=== PATIENT | female | born 1960 | race American Indian/Alaskan Native ===

== ENCOUNTER 2017-11-02 12:29 | Outpatient (CLI) | payer OTHER ==
--- NOTE | 2017-11-03 16:08 | Mammography Report ---
BILATERAL DIGITAL SCREENING MAMMOGRAM with CAD: 11/02/17 12:29:00 CLINICAL: Routine screening. COMPARISON:11/16/15 FINDINGS: The breasts are heterogeneously dense, which may obscure small masses. No mass, architectural distortion or suspicious calcifications. IMPRESSION: No mammographic evidence of malignancy. BI-RADS CATEGORY: 2 - - Benign RECOMMENDATION: Routine mammographic screening in one year. COMMENT: Patient follow-up letters are generated by our [employer] application.
== END 2017-11-02 12:30 | disposition home or self-care (01) ==
LOC: SPVWC 12:29
PROVIDERS: ATTEND General Practice
DX: Z12.31 Encounter for screening mammogram for malignant neoplasm of breast (principal)
CPT/HCPCS: 77067

== ENCOUNTER 2018-06-11 08:30 | Emergency (ER) | payer OTHER ==
[2018-06-11 08:52] VITALS: BP 136/81
[2018-06-11] MEDS ORDERED: TORADOL IM ONE (09:23)
[2018-06-11] MEDS ORDERED: TORADOL ONE (09:27)
--- NOTE | 2018-06-11 09:27 | Emergency Department Report ---
ED Headache HPI - General Chief Complaint: Headache Stated Complaint: HEADACHE/DIZZINESS - History of Present Illness Initial Comments: This is a 57-year-old -[place] female who presents with headache and dizziness for one week. Patient admits to pass a history of vertigo several years ago. She started having a headache last week that is worse on the right side. She is currently taking Excedrin extra strength which improved symptoms they shortly return. She reports pain is dull achy sensation primarily on right side. Here he patient states symptoms start upon waking. They last 3 hours to 24 hours. Dizziness started 2 days ago. She denies nausea or vomiting , fever, congestion, rhinorrhea, sick contacts, or chest pain. Timing/Duration: 24 hours Quality: moderate, achy, throbbing Head Injury Location: other (right sided) Recent Head Trauma: no recent headache/trauma Modifying Factors: improves with: exposure to light, medication Associated Symptoms: denies symptoms Allergies/Adverse Reactions: Allergies No Known Allergies Allergy (Verified 06/11/18 09:39) Home Medications: Ambulatory Orders Diclofenac Sodium 75 mg PO BID #10 tablet. 06/11/18 Meclizine [Antivert] 25 mg PO TID PRN #12 tablet 06/11/18 ED Review of Systems ROS: Stated complaint: HEADACHE/DIZZINESS Other details as noted in HPI Constitutional: denies: chills, fever Respiratory: denies: cough, shortness of breath, wheezing Cardiovascular: denies: chest pain, palpitations Gastrointestinal: denies: abdominal pain, nausea, diarrhea Neurological: headache, vertigo. denies: weakness, numbness, paresthesias, confusion, abnormal gait Psychiatric: denies: anxiety, depression ED Past Medical Hx - Past Medical History Previous Medical History?: No - Social History Smoking Status: Never Smoker - Medications Home Medications: Home Medications Medication Instructions Recorded Confirmed Last Taken Type Diclofenac Sodium 75 mg PO BID #10 tablet. 06/11/18 Unknown Rx Meclizine [Antivert] 25 mg PO TID PRN #12 tablet 06/11/18 Unknown Rx ED Physical Exam - General Limitations: No Limitations General appearance: alert, in no apparent distress - Eye Eye exam: Present: normal appearance. Absent: nystagmus - ENT ENT exam: Present: mucous membranes moist - Respiratory Respiratory exam: Present: normal lung sounds bilaterally. Absent: respiratory distress - Cardiovascular Cardiovascular Exam: Present: regular rate, normal rhythm. Absent: systolic murmur, diastolic murmur, rubs, gallop - GI/Abdominal GI/Abdominal exam: Present: soft, normal bowel sounds - Neurological Exam Neurological exam: Present: alert, oriented X3 - Psychiatric Psychiatric exam: Present: normal affect, normal mood - Skin Skin exam: Present: warm, dry, intact, normal color. Absent: rash ED Course Vital Signs 06/11/18 06/11/18 08:47 09:28 Temperature 98.9 F Pulse Rate 67 Respiratory 16 18 Rate Blood Pressure 136/81 O2 Sat by Pulse 99 Oximetry ED Medical Decision Making - Radiology Data Radiology results: report reviewed, image reviewed The CRANIAL CT SCAN: Headache. Serial contiguous axial images were obtained through the cranium. Intravenous contrast material was not administered. The ventricles are normal in size and appearance. There is no mass effect or midline shift. No areas of abnormally increased or decreased attenuation are seen. No mass lesion is seen. The mastoid air cells and visualized portions of the sinuses are normal. IMPRESSION: Cranial CT scan within normal limits. - Medical Decision Making This is a 57 y.o. female that presents with headache for 1 day. No prior history of migraine. Patient is stable and was examined by me. Patient is nontoxic-appearing and in no acute distress. Given Toradol 30 mg IM once while in ER. CT of head obtained and dictated by radiologist and report reviewed by myself. Cranial CT scan within normal limits. Start diclofenac 75 mg by mouth twice a day when necessary and meclizine 25 mg by mouth twice a day when necessary. Discharged home in stable condition. Follow up with PCP in 24-72 hours. Critical care attestation.: If time is entered above; I have spent that time in minutes in the direct care of this critically ill patient, excluding procedure time. ED Disposition Clinical Impression: Vertigo Migraine Qualifiers: Migraine type: without aura Status migrainosus presence: with status migrainosus Intractability: not intractable Qualified Code(s): G43.001 - Migraine without aura, not intractable, with status migrainosus Disposition: - TO HOME OR SELFCARE Is pt being admited?: No Does the pt Need Aspirin: No Condition: Stable Instructions: Migraine Headache (ED), Vertigo (ED) Additional Instructions: Take medication at start of headache. Moderate caffeine intake. Eat at scheduled times or 3 meals a day with snacks. Follow up with primary care provider in 24-72 hours. Prescriptions: Diclofenac Sodium 75 mg PO BID #10 tablet.dr Amezquitazine [Antivert] 25 mg PO TID PRN #12 tablet PRN Reason: Vertigo Referrals: GARRY SUH DO [Staff Physician] - 3-5 Days [facility] [Provider Group] - 3-5 Days BRANDIE MARTINEZ MD [Staff Physician] - 3-5 Days Forms: Work/School Release Form(ED) Time of Disposition: 10:35 Print Language: SOUTH SUDANESE
--- NOTE | 2018-06-11 09:53 | Cat Scan Report ---
The CRANIAL CT SCAN: Headache. Serial contiguous axial images were obtained through the cranium. Intravenous contrast material was not administered. The ventricles are normal in size and appearance. There is no mass effect or midline shift. No areas of abnormally increased or decreased attenuation are seen. No mass lesion is seen. The mastoid air cells and visualized portions of the sinuses are normal. IMPRESSION: Cranial CT scan within normal limits.
== END 2018-06-11 10:50 | disposition home or self-care (01) ==
LOC: ED 08:30
DX: G43.001 Migraine without aura, not intractable, with status migrainosus (principal)
CPT/HCPCS: 70450; 96372; 99283; J1885

== ENCOUNTER 2018-11-17 09:34 | Outpatient (CLI) | payer OTHER ==
--- NOTE | 2018-11-17 10:23 | Mammography Report ---
BILATERAL MAMMOGRAM: FINDINGS: The breast tissue is heterogeneously dense, which could obscure detection of small masses (approximately 50%-75% glandular). No mass, distortion, suspicious calcification, or skin change is seen. There are no significant changes when compared to prior exams dating back to 2016. CAD was utilized. IMPRESSION: Negative mammogram. There is no mammographic evidence of malignancy. RECOMMENDATION: Follow-up per ACS guidelines. BI-RADS CATEGORY: 1 = Negative ACR BI-RADS MAMMOGRAPHIC CODES: 0 = Needs additional imaging evaluation; 1 = Negative; 2 = Benign; 3 = Probably benign; 4 = Suspicious; 5 = Malignant; 6 = Known biopsy-proven malignancy COMMENT: 1. Dense breast tissue, i.e., adenosis, fibrocystic changes, etc., may obscure an underlying neoplasm. 2. Approximately 10% of cancers are not detected with mammography. 3. A negative mammography report should not delay biopsy if a clinically suspicious mass is present. COMMENT: Patient follow-up letters are generated in [employer].
== END 2018-11-17 09:35 | disposition home or self-care (01) ==
LOC: SPVWC 09:34
PROVIDERS: ATTEND Internal Medicine
DX: Z12.31 Encounter for screening mammogram for malignant neoplasm of breast (principal)
CPT/HCPCS: 77067

== ENCOUNTER 2021-10-17 12:10 | Emergency (ER) | payer OTHER ==
[2021-10-17 12:27] VITALS: BP 127/70
--- NOTE | 2021-10-17 14:21 | XRay Report ---
XR chest routine 2V INDICATION / CLINICAL INFORMATION: chest pain. COMPARISON: None available. FINDINGS: SUPPORT DEVICES: None. HEART /PULMONARY VASCULATURE: No significant abnormality. LUNGS / PLEURA: No significant pulmonary or pleural abnormality. No pneumothorax. ADDITIONAL FINDINGS: No significant additional findings. IMPRESSION: 1. No acute findings. Signer Name: Rafael Liao MD Signed: 10/17/2021 2:16 PM Workstation Name: [id number]
[2021-10-17] MEDS ORDERED: ACETAMINOPHEN 325 MG TAB PO ONE (15:20)
[2021-10-17] MEDS ORDERED: IBUPROFEN 400 MG TAB PO ONE (15:20)
--- NOTE | 2021-10-17 15:20 | Emergency Department Report ---
ED General Adult HPI - General Chief complaint: Chest Pain Stated complaint: Chest wall pain with cough PUI?: No Time Seen by Provider: 10/17/21 15:01 Source: patient, RN notes reviewed, old records reviewed Mode of arrival: Ambulatory Limitations: No Limitations - History of Present Illness Initial comments: The patient was evaluated in the emergency department for symptoms described in the history of present illness. He/she was evaluated in the context of the global COVID-19 pandemic, which necessitated consideration that the patient might be at risk for infection with the virus that causes COVID-19. Institutional protocols and algorithms that pertain to the evaluation of patients at risk for COVID-19 are in a state of rapid change based on information released by regulatory bodies including the CDC and federal and state organizations. These policies and algorithms were followed during the patient's care in the emergency department. Please note that these policies, procedures and recommendations changed on a rapid basis. Primary CARE doctor: Dr. Phil Garcia This is a 61 year old female who presents to the ER today with a chief complaint of chest wall pain associated with cough. The patient reports that she is currently being treated for bronchitis by her primary care doctor, with Tessalon Perles, doxycycline antibiotic (which she has completed), and allergy medication. She has not taken anything for pain. The chest wall pain is central, and left- sided and reproducible, and increases with palpation. She also endorses dry cough, and intermittent dry mucus production, predominantly at night. She denies significant contributing family history, and she also denies DVT/PE risk factors/aspirin consumption recently. The patient also reports that she has not taken anything for pain. She is COVID-19 vaccinated but has not completed her COVID-19 booster. The patient reports that her chest wall pain has been present for a few days. During the history and physical examination I am chaperoned by video producer Patricia Garcia -: Gradual, days(s) Location: chest (Central and left-sided anterior chest wall) Quality: aching Consistency: intermittent Improves with: rest Worsens with: movement, other (Palpation and coughing) - Related Data Previous Rx's Medication Instructions Recorded Last Taken Type Diclofenac Sodium 75 mg PO BID #10 tablet. 06/11/18 Unknown Rx Meclizine [Antivert] 25 mg PO TID PRN #12 tablet 06/11/18 Unknown Rx Albuterol Sulfate [Proair 90 mcg IH Q4HR PRN #2 aer.[email or web address] 10/17/21 Unknown Rx Respiclick] Allergies Allergy/AdvReac Type Severity Reaction Status Date / Time No Known Allergies Allergy Verified 10/17/21 12:22 ED Review of Systems ROS: Stated complaint: CHEST PAIN/COUGH Other details as noted in HPI Constitutional: denies: fever Eyes: denies: vision change ENT: denies: epistaxis Respiratory: cough, shortness of breath, wheezing Cardiovascular: chest pain. denies: palpitations, syncope Gastrointestinal: denies: nausea, vomiting, diarrhea Genitourinary: denies: dysuria Musculoskeletal: denies: back pain Neurological: denies: weakness ED Past Medical Hx - Past Medical History Previous Medical History?: No - Surgical History Additional Surgical History: EYE - Social History Smoking Status: Never Smoker - Medications Home Medications: Home Medications Medication Instructions Recorded Confirmed Last Taken Type Diclofenac Sodium 75 mg PO BID #10 tablet. 06/11/18 Unknown Rx Meclizine [Antivert] 25 mg PO TID PRN #12 tablet 06/11/18 Unknown Rx Albuterol Sulfate [Proair 90 mcg IH Q4HR PRN #2 aer.[email or web address] 10/17/21 Unknown Rx Respiclick] ED Physical Exam - General Limitations: No Limitations General appearance: alert, in no apparent distress - Head Head exam: Present: atraumatic, normocephalic - Eye Eye exam: Present: normal appearance, EOMI. Absent: nystagmus - ENT ENT exam: Present: normal exam, normal orophraynx, mucous membranes moist, normal external ear exam - Neck Neck exam: Present: normal inspection, full ROM. Absent: tenderness, meningismus - Respiratory Respiratory exam: Present: normal lung sounds bilaterally, chest wall tenderness, other (Patient provides verbal consent for breast and anterior chest wall examination. Chaperoned by Patricia Garcia. Patient has reproducible central and left-sided anterior chest wall tenderness.). Absent: respiratory distress, wheezes, rales, rhonchi, stridor - Cardiovascular Cardiovascular Exam: Present: regular rate, normal rhythm, normal heart sounds. Absent: bradycardia, tachycardia, irregular rhythm, systolic murmur, diastolic murmur, rubs, gallop - GI/Abdominal GI/Abdominal exam: Present: soft. Absent: distended, tenderness, guarding, rebound, rigid, pulsatile mass - Extremities Exam Extremities exam: Present: normal inspection, full ROM, other (2+ pulses noted in the bilateral upper and lower extremities. There is no palpable cord. negative Homans sign. Muscular compartments are soft. The pelvis is stable.). Absent: pedal edema, calf tenderness - Back Exam Back exam: Present: normal inspection, full ROM. Absent: tenderness, CVA tenderness (R), CVA tenderness (L), paraspinal tenderness, vertebral tenderness - Neurological Exam Neurological exam: Present: alert, oriented X3, normal gait, other (No facial droop. Tongue midline. Extraocular movements intact bilaterally. Facial sensation intact to light touch in V1, V2, V3 distribution bilaterally. 5 and a 5 strength in 4 extremities. Sensation intact to light touch in 4 extremities.). Absent: motor sensory deficit - Psychiatric Psychiatric exam: Present: normal affect, normal mood - Skin Skin exam: Present: warm, dry, intact, normal color. Absent: rash ED Course Vital Signs 10/17/21 12:26 Temperature 98.3 F Pulse Rate 81 Respiratory 20 Rate Blood Pressure 127/70 O2 Sat by Pulse 99 Oximetry ED Medical Decision Making - Lab Data Result diagrams: 10/17/21 15:02 10/17/21 15:02 Vital Signs 10/17/21 12:26 Temperature 98.3 F Pulse Rate 81 Respiratory 20 Rate Blood Pressure 127/70 O2 Sat by Pulse 99 Oximetry Lab Results 10/17/21 10/17/21 10/17/21 Range/Units 15:02 15:02 15:02 WBC 9.2 (4.5-11.0) K/mm3 RBC 4.73 (3.65-5.03) M/mm3 Hgb 13.0 (10.1-14.3) gm/dl Hct 41.5 (30.3-42.9) % MCV 88 (79-97) fl MCH 27 L (28-32) pg MCHC 31 (30-34) % RDW 13.3 (13.2-15.2) % Plt Count 294 (140-440) K/mm3 Sodium 137 (137-145) mmol/L Potassium 4.0 (3.6-5.0) mmol/L Chloride 103.1 (98-107) mmol/L Carbon Dioxide 24 (22-30) mmol/L Anion Gap 14 mmol/L BUN 14 (7-17) mg/dL Creatinine 0.7 (0.6-1.2) mg/dL Estimated GFR > 60 ml/min BUN/Creatinine Ratio 20 % Glucose 114 H (65-100) mg/dL Calcium 9.3 (8.4-10.2) mg/dL Total Bilirubin 0.20 (0.1-1.2) mg/dL AST 16 (5-40) units/L ALT 14 (7-56) units/L Alkaline Phosphatase 96 (35-129) units/L Troponin T < 0.010 (0.00-0.029) ng/mL Total Protein 7.9 (6.3-8.2) g/dL Albumin 4.4 (3.9-5) g/dL Albumin/Globulin Ratio 1.3 % - EKG Data -: EKG Interpreted by Me EKG shows normal: sinus rhythm Rate: normal - EKG Data When compared to previous EKG there are: previous EKG unavailable 10/17/21 15:51 The EKG is interpreted at 12: 35 Sinus rhythm, rate 67 bpm. There is a borderline normal axis, normal P wave axis, normal intervals. The EKG is not a STEMI. There is no prior for comparison peer - Radiology Data Radiology results: pending, report reviewed, image reviewed interpreted by me: 2 view x-ray of the chest, interpreted by myself, shows no infiltrates, no pneumothorax and clear lung XR chest routine 2V INDICATION / CLINICAL INFORMATION: chest pain. COMPARISON: None available. FINDINGS: SUPPORT DEVICES: None. HEART /PULMONARY VASCULATURE: No significant abnormality. LUNGS / PLEURA: No significant pulmonary or pleural abnormality. No pneumothorax. ADDITIONAL FINDINGS: No significant additional findings. IMPRESSION: 1. No acute findings. Signer Name: Rafael Liao MD Signed: 10/17/2021 1:16 PM Workstation Name: [id number] - Medical Decision Making Differential diagnosis, include but not limited to: Costochondritis, bronchitis, pneumonia Assessment and plan: 61-year-old female, who is not currently tachycardic, tachypneic or hypoxic, who denies DVT and pulmonary embolism risk factors, who is low risk by Wells criteria for pulmonary embolism, EKG unchanged unremarkable times, troponin negative x1 in the context of days of symptoms. Acute myocardial infarction is ruled out given that patient has been having greater than 8 hours of chest pain Patient has equal pulses in the upper and lower extremities, no pulsatile abdominal mass, and an unremarkable x-ray of the chest, therefore, aortic disease is very unlikely. Patient at low risk for major adverse cardiac event as per heart score. Chest x-ray and laboratory studies unremarkable. This is most likely bronchitis with superimposed costochondritis. Her primary care doctor has already prescribed doxycycline, Tessalon Perles, she is not taking pain medication [id number] and she may therefore take Tylenol and/or ibuprofen [id number], she has also been prescribed allergy medicine which she is taking, and we will also prescribe as needed albuterol. Discussed this with the patient. She articulated understanding. All questions answered Critical care attestation.: If time is entered above; I have spent that time in minutes in the direct care of this critically ill patient, excluding procedure time. ED Disposition Clinical Impression: Bronchitis, Chest wall pain Disposition: 01 HOME / SELF CARE / HOMELESS Is pt being admited?: No Does the pt Need Aspirin: No Condition: Good Instructions: Chronic Bronchitis (ED), Costochondritis, Acute Bronchitis, Adult Additional Instructions: As we discussed, patient likely has bronchitis and costochondritis. Symptoms of bronchitis will typically persist 4 to 6 weeks. Please continue current Tessalon Perles therapy, complete antibiotics, and take allergy medications that have been prescribed by your primary care doctor. Patient may use the albuterol inhaler as needed, and may take [id number] ibuprofen, 600 mg with food, every 6 hours as needed for pain, alternating with Tylenol, 650 mg by mouth, every 4-6 hours as needed for pain, maximum daily dose to not exceed 3 g per 24 hours. There is no cure for bronchitis. Bronchitis is typically not dangerous or life- threatening. Please follow-up with your primary care doctor within the next 7 to 10 days. Please return to the emergency room right away with new pain, worsened pain, migration of pain, projectile vomiting, change in mental status, confusion, inability tolerate liquid feeds, new, worsened or different symptoms not present on the initial emergency room evaluation Referrals: PHIL GARCIA MD [Staff Physician] - 3-5 Days Forms: Work/School Release Form(ED) Heart Score - HEART Score History: Slightly suspicious EKG: Non-specific Age: 45-65 Risk factors: No known risk factors Troponin: < normal limit HEART Score: 2 - EKG Read Time Time EKG Completed: 12:40 EKG Read Time: 12:40 - Critical Actions Critical Actions: 4-6 pts:12-16.6% risk of adverse cardiac event. Should be admitted
[2021-10-17 15:24] LABS: Hematocrit 41.5 % (30.3-42.9); Mean Corpuscular HGB Conc 31 % (30-34); Mean Corpuscular Volume 88 fl (79-97); Platelet Count 294 K/mm3 (140-440); Red Blood Count 4.73 M/mm3 (3.65-5.03); Red Cell Distribution Width 13.3 % (13.2-15.2)
[2021-10-17 15:40] LABS: Alanine Aminotransferase 14 units/L (7-56); Albumin 4.4 g/dL (3.9-5); Blood Urea Nitrogen 14 mg/dL (7-17); Calcium 9.3 mg/dL (8.4-10.2); Hemolysis Index 14
[2021-10-17 15:42] LABS: BUN/Creatinine Ratio 20
--- NOTE | 2021-10-18 09:55 | Electrocardiograph Report ---
[facility] Test Date: 2021-10-17 Test Time: 12:35:51 Pat Name: AMARILYS GUNTER Department: Room: Gender: F Brand Advisor: EMILIE : [id number] Requested By: ELVIN LEONARD Order Number: [id number] Reading MD: Jonah Solis Measurements Intervals [place] Rate: 67 P: 58 MA: 136 QRS: 2 QRSD: 94 T: 55 QT: 384 QTc: 407 Interpretive Statements Sinus rhythm No previous ECG available for comparison Electronically Signed On 10-18-2021 9:54:57 EST by Jonah Solis
== END 2021-10-17 16:42 | disposition home or self-care (01) ==
LOC: ED 12:10
DX: J40 Bronchitis, not specified as acute or chronic (principal); R07.89 Other chest pain; Z79.899 Other long term (current) drug therapy
CPT/HCPCS: 36415; 71046; 80053; 84484; 85027; 93005; 93010; 99284